=== PATIENT | male | born 1980 | race Caucasian/White ===

== ENCOUNTER 2020-03-12 17:05 | Emergency (ER) | payer BC ==
[~2020-03-12] VITALS: Ht 175.3 cm; Wt 86.2 kg
--- NOTE | 2020-03-12 17:39 | Emergency Room Report ---
History of Present Illness General Chief Complaint: General Complaint Source: Patient Present Illness HPI 39-year-old male with no symptom past medical history other than anxiety here complaining of shortness of breath and panic attack. Reports that he does not have history of ADHD however took an Adderall that he bought from a friend earlier today. Refuses to give urine sample. Denies drug use, tobacco smoke. Refuses to be worked up only agrees to chest x-ray. Request something for anxiety. Denies any SI and HI. Allergies: Coded Allergies: No Known Allergies (Unverified , 03/12/20) COVID-19 Screening COVID-19 risk:Contact w/high r: No Has patient experienced leon: No COVID-19 Testing performed [employer]: No Patient History Past Medical History: unable to obtain Past Surgical History: none Pertinent Family History: none Immunizations: UTD Reviewed Nursing Documentation: PMH: Agreed; PSxH: Agreed Nursing Documentation-PMH Past Medical History: No Stated History Review of Systems All Other Systems: negative except mentioned in HPI Physical Exam Vital Signs Date Time Temp Pulse Resp B/P (MAP) Pulse Ox O2 Delivery O2 Flow Rate FiO2 03/12/20 17:11 97.3 89 22 121/73 (89) 98 Room Air Sp02 EP Interpretation: reviewed, normal General Appearance: normal inspection, alert, no apparent distress, GCS 15 Head: normocephalic, atraumatic Eyes: normal eye exam, PERRL, EOMI, lids + conjunctiva normal, no hyphema, no racoon eyes ENT: normal ENT inspection, TMs + canals normal, oropharynx normal, no kohli signs Neck: trach midline, no bony tend, full range of motion without pain Respiratory: effort normal, no retractions, clear to auscultation, chest symmetrical, palpation of chest normal, speaking in full sentences Cardiovascular: regular rate, rhythm, no JVD Cardiovascular #2: 2+ carotid (R), 2+ carotid (L), 2+ radial (R), 2+ radial (L) Gastrointestinal: no mass Musculoskeletal: gait & station normal Skin: no rash Lymphatic: normal inspection Neurologic: oriented x3, sensory intact, motor strength/tone normal, normal speech Psychiatric: normal inspection, judgment & insight normal, memory normal, mood normal, no suicidal/homicidal ideation Procedures Splinting Splinting : Consent: Verbal Location: Left ankle Pre-Made Type: ROBERT wrap Pre-Proc Neuro Vasc Exam: normal Post-Proc Neuro Vasc Exam: normal Patient Tolerated: Well Complications: None Medical Decision Making PA Attestation All my diagnosis and treatment plans were reviewed ad discussed with my supervising physician Dr. Puga Diagnostic Impression: Primary Impression: Ankle sprain ER Course 39-year-old male with no symptom past medical history other than anxiety here complaining of shortness of breath and panic attack. Reports that he does not have history of ADHD however took an Adderall that he bought from a friend earlier today. Refuses to give urine sample. Denies drug use, tobacco smoke. Refuses to be worked up only agrees to chest x-ray. Request something for anxiety. Denies any SI and HI. Ddx considered but are not limited to: generalized anxiety disorder, panic attack, depression with psychotic feature, bipolar disorder, drug overdose Vital signs: are WNL, pt. is afebrile H&PE are most consistent with: anxiety ORDERS: Chest x-ray, propranolol ED INTERVENTIONS: None required at this time. DISCHARGE: At this time pt. is stable for d/c to home. Will provide printed patient care instructions, and any necessary prescriptions. Care plan and follow up instructions have been discussed with the patient prior to discharge. Advised patient to follow-up with psychiatrist, avoid taking Adderall, avoid taking excess amount of caffeine, if worsening symptoms return to the emergency room. Chest X-Ray Diagnostic Results Chest X-Ray Diagnostic Results : Chest X-Ray Ordered: Yes # of Views/Limited/Complete: 1 View Indication: Shortness of Breath EP Interpretation: Yes Interpretation: no consolidation, no effusion, no pneumothorax, no acute cardiopulmonary disease Impression: No acute disease Electronically Signed by: Minesh Hogan PA-C Last Vital Signs Date Time Temp Pulse Resp B/P (MAP) Pulse Ox O2 Delivery O2 Flow Rate FiO2 03/12/20 17:11 97.3 89 22 121/73 (89) 98 Room Air Disposition: HOME, SELF-CARE Condition: Stable Scripts Propranolol Hcl* (INDERAL*) 10 Mg Tablet 10 MG ORAL DAILY for 3 Days, #3 TAB 0 Refills Prov: Minesh Castellanos 03/12/20 Patient Instructions: Generalized Anxiety Disorder Additional Instructions: Advised patient to follow-up with psychiatrist, avoid taking Adderall, avoid taking excess amount of caffeine, if worsening symptoms return to the emergency room. Minesh Castellanos Mar 12, 2020 17:38
[2020-03-12] MEDS ORDERED: ROBAXIN-500MG ORAL (17:40)
[2020-03-12] MEDS ORDERED: IBU800 MG PO (17:40)
[2020-03-12 17:45] VITALS: BP 121/73
--- NOTE | 2020-03-12 17:47 | NUR ---
ED Nurse Note:pt. came with anxiety and not feeling well averall
[2020-03-12] MEDS ORDERED: PROPRANOLOL HCL10 MG ORAL (17:52)
--- NOTE | 2020-03-12 18:16 | NUR ---
ED Nurse Note:blood was sent to labs and EKG done
[2020-03-12 18:43] LABS: BASOPHILS % (AUTO) 0.8 % (0.0-2.0); EOSINOPHILS % (AUTO) 0.7 % (0.0-3.0); HEMATOCRIT 43.3 % (42.0-52.0); MEAN CORPUSCULAR VOLUME 84 FL (80-99); MONOCYTES % (AUTO) 6.6 % (1.0-10.0); PLATELET COUNT 260 K/UL (150-450); RED BLOOD COUNT 5.18 M/UL (4.70-6.10); RED CELL DISTRIBUTION WIDTH 11.7 % (11.6-14.8); WHITE BLOOD COUNT 9.3 K/UL (4.8-10.8)
[2020-03-12 18:58] LABS: ANION GAP 15 mmol/L (5-15); BLOOD UREA NITROGEN 21 mg/dL (7-18); CALCIUM 9.8 MG/DL (8.5-10.1); CARBON DIOXIDE 21 MMOL/L (21-32); CHLORIDE 101 MMOL/L (98-107); CREATININE 1.3 MG/DL (0.55-1.30); POTASSIUM 3.9 MMOL/L (3.5-5.1); SODIUM 136 MMOL/L (136-145)
[2020-03-12 19:12] LABS: ALANINE AMINOTRANSFERASE 28 U/L (12-78); ALBUMIN 4.5 G/DL (3.4-5.0); ALBUMIN/GLOBULIN RATIO 1.2 (1.0-2.7); ALKALINE PHOSPHATASE 59 U/L (46-116); ASPARTATE AMINO TRANSFERASE 23 U/L (15-37); BILIRUBIN,TOTAL 1.5 MG/DL (0.2-1.0)
[2020-03-12 19:16] LABS: BILIRUBIN,DIRECT 0.3 MG/DL (0.0-0.3)
[2020-03-12 19:20] VITALS: BP 125/75
--- NOTE | 2020-03-12 19:20 | NUR ---
ER DISCHARGE NOTE: Patient is cleared to be discharged per ERMD, pt is aox4, on room air, with stable vital signs. pt was given dc and prescription instructions, pt was able to verbalize understanding, pt id band removed without complications. pt is able to ambulate with steady gait. pt took all belongings.
[2020-03-12] MEDS ORDERED: ZOFRAN4 M1 ORAL (19:21)
--- NOTE | 2020-03-13 16:12 | Diagnostic Imaging Report ---
Indication: Shortness of breath Technique: One view of the chest Comparison: none Findings: Lungs and pleural spaces are clear. Heart size is normal. Impression: No acute process
== END 2020-03-12 19:20 | disposition home or self-care (01) ==
LOC: EMR 17:49
DX: F41.0 Panic disorder [episodic paroxysmal anxiety] (principal); R06.02 Shortness of breath
CPT/HCPCS: 36415; 71045; 80053; 80307; 82248; 84484; 85025; 93005; 99284